=== PATIENT | male | born 1990 | race African-American/Black ===

== ENCOUNTER 2018-05-11 15:36 | Emergency (ER) | payer SELFPAY ==
[2018-05-11] MEDS ORDERED: NORMAL SALINE 1000 ML 1,000 ML IV ONE (16:10)
--- NOTE | 2018-05-11 16:12 | ER Document Report ---
ED Medical Screen (RME) - General Chief Complaint: Leg Swelling Stated Complaint: LEG INJURY Time Seen by Provider: 05/11/18 16:08 Notes: 27 years old male injured his left thigh yesterday while lifting a heavy iron weight left. Presents with large swelling and tenderness unable to bear weight or ambulate. Left eye has almost doubled the size of the right one with diffuse tenderness and tense feeling. Subcutaneous erythema noted. TRAVEL OUTSIDE OF THE [place] IN LAST 30 DAYS: No - Related Data Allergies/Adverse Reactions: No Known Allergies Allergy (Verified 05/11/18 15:38) Physical Exam - Vital signs Vitals: Temp Pulse Resp BP Pulse Ox 99.1 F 110 H 17 113/65 97 05/11/18 15:47 05/11/18 15:47 05/11/18 15:47 05/11/18 15:47 05/11/18 15:47 Course - Vital Signs Vital signs: Temp Pulse Resp BP Pulse Ox 99.1 F 110 H 17 113/65 97 05/11/18 15:47 05/11/18 15:47 05/11/18 15:47 05/11/18 15:47 05/11/18 15:47
[2018-05-11 16:45] LABS: ABSOLUTE LYMPHOCYTES (AUTO) 1.5 10^3/uL (0.5-4.7); ABSOLUTE MONOCYTES (AUTO) 1.1 10^3/uL (0.1-1.4); BASOPHILS % (AUTO) 0.3 % (0-2); EOSINOPHILS % (AUTO) 0.1 % (0-6); HEMATOCRIT 40.8 % (37.9-51.0); HEMOGLOBIN 14.2 g/dL (13.5-17.0); MEAN CORPUSCULAR HEMOGLOBIN 32.7 pg (27.0-33.4); MEAN CORPUSCULAR HGB CONC 34.7 g/dL (32.0-36.0); MEAN CORPUSCULAR VOLUME 94 fl (80-97); MONOCYTES % (AUTO) 10.2 % (3-13); PLATELET COUNT 222 10^3/uL (150-450); RED BLOOD COUNT 4.33 10^6/uL (4.35-5.55); RED CELL DISTRIBUTION WIDTH 13.1 % (11.5-14.0); SEGMENTED NEUTROPHILS % (AUTO) 75.4 % (42-78); TOTAL CELLS COUNTED % (AUTO) 100 %; WHITE BLOOD COUNT 10.6 10^3/uL (4.0-10.5)
[2018-05-11] MEDS ORDERED: MORPHINE SULFATE 10 MG/ML INJ IV ONE (16:46)
--- NOTE | 2018-05-11 16:46 | ER Document Report ---
ED Extremity Problem, Lower - General Chief Complaint: Leg Swelling Stated Complaint: LEG INJURY Time Seen by Provider: 05/11/18 16:08 Notes: Patient is a 27-year-old male presenting to the emergency room for left thigh swelling. 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 Patient denies having the weight actually fall or land on him at all states he just had a twisting motion of his left knee and upper leg. Patient states he visited a freestanding emergency room in [place] yesterday got an x-ray of his knee which revealed no fractures. Stated he was supposed to follow-up with orthopedics. Patient states he followed up with Dr. Cruz in [place] today who stated the left thigh was swollen and he could be developing compartment syndrome. States he was then scheduled for an outpatient MRI tomorrow. Patient states this afternoon and evening he noticed that the swelling and pain had gotten worse which is why he presents to the emergency room. Past medical history: None Medications: None Allergies: None TRAVEL OUTSIDE OF THE [place] IN LAST 30 DAYS: No - Related Data Allergies/Adverse Reactions: No Known Allergies Allergy (Verified 05/11/18 15:38) Past Medical History - General Information source: Patient - Social History Smoking Status: Never Smoker Chew tobacco use (# tins/day): No Frequency of alcohol use: None Drug Abuse: None Lives with: Family Family History: Reviewed & Not Pertinent Patient has suicidal ideation: No Patient has homicidal ideation: No Renal/ Medical History: Denies: Hx Peritoneal Dialysis Past Surgical History: Reports: Hx Orthopedic Surgery - finger Review of Systems - Review of Systems Constitutional: No symptoms reported EENT: No symptoms reported Cardiovascular: No symptoms reported Respiratory: No symptoms reported Gastrointestinal: No symptoms reported Genitourinary: No symptoms reported Male Genitourinary: No symptoms reported Musculoskeletal: See HPI Skin: See HPI Hematologic/Lymphatic: No symptoms reported Neurological/Psychological: No symptoms reported Physical Exam - Vital signs Vitals: Temp Pulse Resp BP Pulse Ox 99.1 F 110 H 17 113/65 97 05/11/18 15:47 05/11/18 15:47 05/11/18 15:47 05/11/18 15:47 05/11/18 15:47 - Notes Notes: GENERAL: -Sudanese, alert, interacts well. No acute distress. HEAD: Normocephalic, atraumatic. EYES: Pupils equal, round, and reactive to light. Extraocular movements intact. ENT: Oral mucosa moist, tongue midline. NECK: Full range of motion. Supple. Trachea midline. LUNGS: Clear to auscultation bilaterally, no wheezes, rales, or rhonchi. No respiratory distress. HEART: Regular rate and rhythm. No murmur ABDOMEN: Soft, non-tender. Non-distended. Bowel sounds present in all 4 quadrants. EXTREMITIES: Moves all 4 extremities spontaneously. normal radial and dorsalis pedis pulses bilaterally. Capillary refill less than 2 seconds all 4 extremities. Significant swelling to the left thigh, almost double the size of the right thigh. Entire circumferential thigh is hard to touch bruising seen around the distal femur. Distal left foot warm to touch good cap refill and pulses noted. BACK: no cervical, thoracic, lumbar midline tenderness. No saddle anesthesia, normal distal neurovascular exam. NEUROLOGICAL: Alert and oriented x3. Normal speech. cranial nerves II through XII grossly intact PSYCH: Normal affect, normal mood. SKIN: Warm, dry, normal turgor. Course - Re-evaluation Re-evalutation: Discussed case with Dr. Harris who is requesting an MRI at this time. States he will see the patient in the emergency room. MRI ordered, pain management ordered. Awaiting Dr. Harris's consult. 05/11/18 18:30 Dr. Harris currently in the emergency room evaluating the patient at bedside. 05/11/18 19:11 Dr. Harris stated this was not compartment syndrome, after reviewing the MRI and doing a physical exam he states the swelling is due to bleeding. He is requesting an MRI of the left knee and discharge home with pain medication. He states he will see the patient tomorrow morning in his office. - Vital Signs Vital signs: Temp Pulse Resp BP Pulse Ox 98.4 F 105 H 17 135/41 H 98 05/11/18 18:30 05/11/18 18:30 05/11/18 18:30 05/11/18 18:30 05/11/18 18:30 - Laboratory Result Diagrams: 05/11/18 16:35 05/11/18 16:35 Laboratory results interpreted by me: 05/11/18 05/11/18 16:35 16:35 WBC 10.6 H RBC 4.33 L AST 60 H Creatine Kinase 3122 H Discharge - Discharge Clinical Impression: Left leg swelling Left leg injury Qualifiers: Encounter type: initial encounter Qualified Code(s): S89.92XA - Unspecified injury of left lower leg, initial encounter Condition: Stable Disposition: HOME, SELF-CARE Additional Instructions: As we discussed at bedside and as you were told by Dr. Harris you should follow- up in his office tomorrow morning. He will review the results of the second MRI and be able to better treat you. Please take medications as prescribed. Please return to the emergency room for any other concerning symptoms. Prescriptions: Oxycodone HCl/Acetaminophen [Percocet 5-325 mg Tablet] 1 - 2 tab PO Q4H PRN #15 tablet PRN Reason: Referrals: GRIS MUNOZ MD [ACTIVE STAFF] - Follow up as needed
[2018-05-11 17:12] LABS: ALANINE AMINOTRANSFERASE 53 U/L (21-72); ALBUMIN 4.2 g/dL (3.5-5.0); ALKALINE PHOSPHATASE 48 U/L (38-126); ANION GAP 14 (5-19); ASPARTATE AMINO TRANSFERASE 60 U/L (17-59); BILIRUBIN,DIRECT 0.1 mg/dL (0.0-0.4); BILIRUBIN,TOTAL 0.8 mg/dL (0.2-1.3); BLOOD UREA NITROGEN 12 mg/dL (7-20); CALCIUM 9.2 mg/dL (8.4-10.2); CARBON DIOXIDE 28 mmol/L (22-30); CHLORIDE 100 mmol/L (98-107); GLUCOSE 110 mg/dL (75-110); SODIUM 141.9 mmol/L (137-145); TOTAL PROTEIN 7.4 g/dL (6.3-8.2)
[2018-05-11 17:30] LABS: CREATINE KINASE 3122 U/L (55-170)
[2018-05-11] MEDS ORDERED: HYDROMORPHONE HCL INJ/PF 2 MG/ML AMPULE IV ONE (18:22)
[2018-05-11] MEDS ORDERED: HYDROCODONE/ACETAMINOPHEN 5-325 MG (6 TAB/ER DISP) PO PRN (19:23)
--- NOTE | 2018-05-11 20:08 | PDOC CONSULTATION ---
Consultation Consult Date: 05/11/18 Consult reason:: Rule out compartment syndrome of the left thigh. History of Present Illness Patient complains of: Left thigh swelling and weakness History of Present Illness: WHITNEY PIPER is a 27 year old male who had a injury in the gym while weightlifting where he twisted and felt a pop and swelling in his left knee and had T just to like over the weights. Immediately had swelling and pain in the leg and referred him to orthopedics at [facility] so. Has scheduled for an MRI of his extremity for concern of quadriceps tendon rupture. Patient swelling and pain has not worsened so patient has come here 24 hours later with significant swelling and pain of the left thigh. He denies any pain in the hip when the knee. Just complains of the tension on swelling of his thigh. Denies any numbness or tingling or paresthesias. Denies any previous injuries to the knee or hip. No fevers or chills. Past Surgical History Past Surgical History: Reports: Orthopedic Surgery - finger Social History Lives with: Family Smoking Status: Never Smoker Family History Family History: Reviewed & Not Pertinent Parental Family History Reviewed: No Children Family History Reviewed: No Sibling(s) Family History Reviewed.: No Medication/Allergy Home Medications: Oxycodone HCl/Acetaminophen [Percocet 5-325 mg Tablet] 1 - 2 tab PO Q4H PRN #15 tablet 05/11/18 Allergies/Adverse Reactions: No Known Allergies Allergy (Verified 05/11/18 15:38) Review of Systems Review of Systems: Constitutional: [PRESENT: as per HPI. ABSENT: chills, fever(s), headache(s), weight gain, weight loss] Eyes: [ABSENT: visual disturbances] Ears: [ABSENT: hearing changes] Cardiovascular: [ABSENT: chest pain, dyspnea on exertion, edema, orthropnea, palpitations] Respiratory: [ABSENT: cough, hemoptysis] Gastrointestinal: [ABSENT: abdominal pain, constipation, diarrhea, hematemesis, hematochezia, nausea, vomiting] Genitourinary: [ABSENT: dysuria, hematuria] Musculoskeletal: [ABSENT: joint swelling] Integumentary: [ABSENT: rash, wounds] Neurological: [ABSENT: abnormal gait, abnormal speech, confusion, dizziness, focal weakness, syncope] Psychiatric: [ABSENT: anxiety, depression, homicidal ideation, suicidal ideation ] Endocrine: [ABSENT: cold intolerance, heat intolerance, menstrual abnormalities , polydipsia, polyuria] Hematologic/Lymphatic: [ABSENT: easy bleeding, easy bruising, lymphadenopathy] Physical Exam Vital Signs: Temp Pulse Resp BP Pulse Ox 36.9 C 105 H 17 135/41 H 98 05/11/18 18:30 05/11/18 18:30 05/11/18 18:30 05/11/18 18:30 05/11/18 18:30 Intake & Output 05/10/18 05/11/18 05/12/18 06:59 06:59 06:59 Intake Total 866 Balance 866 Weight 122.47 kg General appearance: PRESENT: no acute distress Head exam: PRESENT: atraumatic, normocephalic Eye exam: PRESENT: EOMI, other - Symmetric pupils round Ear exam: PRESENT: normal external ear exam. ABSENT: bleeding, drainage Mouth exam: PRESENT: neck supple Neck exam: ABSENT: lymphadenopathy, thyromegaly Respiratory exam: PRESENT: symmetrical, unlabored. ABSENT: accessory muscle use , tachypnea Cardiovascular exam: PRESENT: RRR Pulses: PRESENT: other - Dopplerable pulse Vascular exam: PRESENT: normal capillary refill GI/Abdominal exam: PRESENT: soft. ABSENT: organolmegaly, rebound, rigid, tenderness Neurological exam: PRESENT: alert, awake, oriented to person, oriented to place , oriented to time, oriented to situation Psychiatric exam: PRESENT: appropriate affect, normal mood Skin exam: PRESENT: intact, normal color. ABSENT: cyanosis, skin tears Adult Front & Back Image: 1 - Significant thigh swelling on the left with a palpable gap around the quadriceps tendon. No pain with palpation. When I flex the hip and knee patient does not have excruciating pain or any type of pain in the thigh. Just feels tension and warmth. Some discomfort when ambulating. He has 5 out of 5 strength distally with dorsi flexion and plantar flexion as well as EHL FHL are intact. He has good sensation to light touch involving the tibial and peroneal nerve distally. No shooting pain or acute neuropathic pain. Unable to do a straight leg raise. Results Laboratory Results: 05/11/18 16:35 05/11/18 16:35 05/11/18 05/11/18 16:35 16:35 WBC 10.6 H RBC 4.33 L Hgb 14.2 Hct 40.8 MCV 94 MCH 32.7 MCHC 34.7 RDW 13.1 Plt Count 222 Seg Neutrophils % 75.4 Lymphocytes % 14.0 Monocytes % 10.2 Eosinophils % 0.1 Basophils % 0.3 Absolute Neutrophils 8.0 Absolute Lymphocytes 1.5 Absolute Monocytes 1.1 Absolute Eosinophils 0.0 Absolute Basophils 0.0 Sodium 141.9 Potassium 4.0 Chloride 100 Carbon Dioxide 28 Anion Gap 14 BUN 12 Creatinine 1.21 Est GFR ( Amer) > 60 Est GFR (Non-Af Amer) > 60 Glucose 110 Calcium 9.2 Total Bilirubin 0.8 AST 60 H ALT 53 Alkaline Phosphatase 48 Total Protein 7.4 Albumin 4.2 05/11/18 16:35 Creatine Kinase 3122 H Status: Image reviewed by me Assessment & Plan - Diagnosis (1) Quadriceps tendon rupture Qualifiers: Encounter type: initial encounter Laterality: left Qualified Code(s): S76.112A - Strain of left quadriceps muscle, fascia and tendon, initial encounter Is this a current diagnosis for this admission?: Yes Plan: 27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 He has a subsequent hematoma that is between the fascial muscular compartment in the subcutaneous fat tracking anterior laterally. He has this seen on MRI. Discussed the patient does not have compartment syndrome but significant hematoma from the tear. We will see him tomorrow in the office to schedule outpatient quadriceps tendon repair. The meantime ice and elevate the extremity and crutches for ambulation follow-up in the office in the morning.
--- NOTE | 2018-05-11 20:37 | RADIOLOGY REPORT (SQ) ---
EXAM DESCRIPTION: MRI LT LOWER EXTREMITY COMBO COMPLETED DATE/TIME: 05/11/2018 6:17 pm REASON FOR STUDY: left thigh swelling injured yesterday, now unable to walk with severe left thigh p ain COMPARISON: None. TECHNIQUE: This study was initially ordered as a lower extremity without and with contrast to evalua te for left thigh compartment syndrome. Patient was injected with 20 mL of IV Dotarem contrast. Est imated GFR greater than 60. Left thigh and knee images acquired and stored on PACS. Multiplanar images include fat sensitive seq uences as T1, water sensitive sequences as FST2 or STIR, cartilage sensitive sequences as FSPD, and g radient echo sequences. LIMITATIONS: None. FINDINGS: Left thigh pre and post contrast images demonstrate an acute hematoma, tracking along the superficial aspect of the quadriceps muscles from the inguinal region through the knee. This acute h ematoma measures 15 cm transverse by 30 cm craniocaudad by 2 cm AP, and continues into the anterior u pper calf subcutaneous fat. The quadriceps tendon and muscular attachments are disrupted. The vastus medialis muscle attachment to the quadriceps tendon is completely torn, at its musculotendinous junction. There is contrast enh ancement at the tear, and an intramuscular tear extending along the distal 3rd vastus medialis muscle . These changes are best shown on coronal series 7 images 12-18, axial series 5 images 4-15, and axi al series 7 images 46-54. The vastus intermedius muscle is torn from the proximal quadriceps tendon at its musculotendinous lencho ction, best shown on axial series 5, images 4-15. There is a short stump of persistent partially intact quadriceps tendon attached to the distal vastus lateralis muscle, best shown on axial series 5, image 12. There is a full-thickness quadriceps tendon tear between the residual vastus lateralis tendon stump a nd the patella. Gap in the tendon measures about 7 cm. These findings are best shown on coronal ser ies 8 images 9-23. Large nxepn-db-alca imaging of the left knee: JOINT AND BURSAE: Suprapatellar knee joint effusion communicates with the large hematoma in the anter ior left thigh. BONE CORTEX AND MARROW: No alteration of signal to suggest marrow replacement. No worrisome bone lesi ons. No occult fracture. ACL: Intact. No degeneration or ganglion cyst. PCL: Intact. MCL: Intact. No periligamentous edema or fluid. LCL: Intact. No periligamentous edema or fluid. MEDIAL MENISCUS: Grossly intact. LATERAL MENISCUS: Grossly intact MEDIAL COMPARTMENT: Grossly intact LATERAL COMPARTMENT: Grossly intact PATELLA: No fracture. Slight lateral subluxation of the patella. EXTENSOR MECHANISM: As above SOFT TISSUES: Normal flow voids in the popliteal artery and vein, superficial femoral artery and vein . OTHER: No other significant finding. IMPRESSION: Disruption of the quadriceps tendon, both at the musculotendinous junctions and at its a ttachment to the patella. Intramuscular tears of the vastus medialis and vastus intermedius muscles Large left anterior thigh hematoma extending into the prepatellar soft tissues and upper left calf Findings communicated to Dr. Penn, 1915 hours 05/11/2018 TECHNICAL DOCUMENTATION: JOB ID: [id number] [employer]- All Rights Reserved Reading location - IP/workstation name: [email or web address]
[2018-05-11 21:03] VITALS: BP 157/64
== END 2018-05-11 21:03 | disposition home or self-care (01) ==
LOC: ER 15:36
DX: S89.92XA Unspecified injury of left lower leg, initial encounter (principal); M79.89 Other specified soft tissue disorders; X50.0XXA Overexertion from strenuous movement or load, initial encounter; Y93.B3 Activity, free weights
CPT/HCPCS: 99284; 96361; 96374; 96375; 36415; 82550; 85025; 80053; 73720; A9576; J2270; J1170; J7030

== ENCOUNTER 2018-05-15 14:09 | Day surgery (SDC) | payer SELFPAY ==
[~2018-05-15 14:09] MED LIST: CEFAZOLIN 2 GM/D5W RTU 2 GM/50 ML RTUPB IV PRN; SUCCINYLCHOLINE CHLORIDE INJ 200 MG/10 ML VIAL ONE
[2018-05-15] MEDS ORDERED: ONDANSETRON HCL INJ/PF 4 MG/2 ML SDV ONE (14:27)
[2018-05-15] MEDS ORDERED: DEXAMETHASONE SOD PHOSPHATE INJ 4 MG/1 ML VIAL ONE (14:27)
[2018-05-15] MEDS ORDERED: MIDAZOLAM 2 MG/2 ML INJ ONE (14:27)
[2018-05-15] MEDS ORDERED: LIDOCAINE 2% INJ-PF (20 MG/ML) 10 ML AMPUL ONE (14:27)
[2018-05-15] MEDS ORDERED: FENTANYL CITRATE INJ/PF 100 MCG/2 ML AMPUL ONE ×4 (14:27→18:41)
[2018-05-15] MEDS ORDERED: PROPOFOL INJ 200 MG/20 ML VIAL IV ONE (14:28)
[2018-05-15] MEDS ORDERED: ACETAMINOPHEN 1,000 MG/100 ML RTUPB IV ONE (14:28)
--- NOTE | 2018-05-15 15:00 | RADIOLOGY REPORT (SQ) ---
EXAM DESCRIPTION: CHEST SINGLE VIEW COMPLETED DATE/TIME: 05/15/2018 2:51 pm REASON FOR STUDY: PREOP COMPARISON: None. EXAM PARAMETERS: NUMBER OF VIEWS: One view. TECHNIQUE: Single frontal radiographic view of the chest acquired. RADIATION DOSE: NA LIMITATIONS: None. FINDINGS: LUNGS AND PLEURA: No opacities, masses or pneumothorax. No pleural effusion. MEDIASTINUM AND HILAR STRUCTURES: No masses. Contour normal. HEART AND VASCULAR STRUCTURES: Heart normal in size. Normal vasculature. BONES: No acute findings. HARDWARE: None in the chest. OTHER: No other significant finding. IMPRESSION: NO ACUTE RADIOGRAPHIC FINDING IN THE CHEST. TECHNICAL DOCUMENTATION: JOB ID: [id number] [employer]- All Rights Reserved Reading location - IP/workstation name: [email or web address]
[2018-05-15] MEDS ORDERED: CEFAZOLIN 2 GM/D5W RTU 2 GM/50 ML RTUPB IV ONE (15:47)
[2018-05-15] MEDS ORDERED: MORPHINE SULFATE 10 MG/ML INJ IV PRN ×2 (15:58→17:50)
[2018-05-15] MEDS ORDERED: MEPERIDINE HCL/PF INJ 25 MG/1 ML DISP.SYRIN IV PRN ×2 (15:58→17:50)
[2018-05-15] MEDS ORDERED: DIPHENHYDRAMINE HCL 50 MG/ML VIAL IV PRN ×2 (15:58→17:50)
[2018-05-15] MEDS ORDERED: ONDANSETRON HCL INJ/PF 4 MG/2 ML SDV IV PRN ×2 (15:58→17:50)
[2018-05-15] MEDS ORDERED: FENTANYL CITRATE INJ/PF 100 MCG/2 ML AMPUL IV PRN ×6 (15:58→17:50)
[2018-05-15] MEDS ORDERED: PROMETHAZINE HCL INJ 25 MG/1 ML VIAL IV PRN ×4 (15:58→17:50)
[2018-05-15 16:31] LABS: HEMATOCRIT 30.5 % (37.9-51.0); HEMOGLOBIN 10.8 g/dL (13.5-17.0); MEAN CORPUSCULAR HEMOGLOBIN 33.1 pg (27.0-33.4); MEAN CORPUSCULAR HGB CONC 35.3 g/dL (32.0-36.0); MEAN CORPUSCULAR VOLUME 94 fl (80-97); PLATELET COUNT 275 10^3/uL (150-450); RED BLOOD COUNT 3.26 10^6/uL (4.35-5.55); RED CELL DISTRIBUTION WIDTH 12.9 % (11.5-14.0); WHITE BLOOD COUNT 8.7 10^3/uL (4.0-10.5)
[2018-05-15 16:48] LABS: ANION GAP 10 (5-19); BLOOD UREA NITROGEN 14 mg/dL (7-20); CALCIUM 9.1 mg/dL (8.4-10.2); CARBON DIOXIDE 29 mmol/L (22-30); CHLORIDE 98 mmol/L (98-107); GLUCOSE 87 mg/dL (75-110); POTASSIUM 4.7 mmol/L (3.6-5.0); SODIUM 137.2 mmol/L (137-145)
[2018-05-15] MEDS ORDERED: OXYCODONE-ACETAMINOPHEN 5-325 MG TABLET PO PRN ×4 (17:50→19:17)
[2018-05-15] MEDS ORDERED: MORPHINE SULFATE 10 MG/ML INJ ONE (18:41)
--- NOTE | 2018-05-15 19:10 | Operative Report ---
Operative Report DATE OF SURGERY: 05/15/18 PREOPERATIVE DIAGNOSIS: Left quadriceps tendon rupture POSTOPERATIVE DIAGNOSIS: Same OPERATION: Left quadriceps tendon repair SURGEON: GRIS GARG ANESTHESIA: GA TISSUE REMOVED OR ALTERED: None COMPLICATIONS: None ESTIMATED BLOOD LOSS: 20 mL INTRAOPERATIVE FINDINGS: Left quadriceps tendon rupture with partial muscle rupture PROCEDURE: After receiving 2 g of Ancef in the preop holding area patient left knee was marked. Patient was brought to the operating room where the patient was successfully sedated and intubated. A thigh tourniquet was applied to the left thigh and a bump was placed under his buttocks. The left lower extremity was prepped and draped in a normal sterile surgical fashion. Timeout was done identifying the left knee as the correct site. Esmarch was used to exsanguinate the extremity and the tourniquet was inflated to 350 mmHg. A longitudinal incision over the knee was done using a 10 blade. Deep knife was using to quickly exposed the torn quadriceps tendon. Dissection was taken down distally exposing the superior pole of the patella and retinaculum. Suction was used to remove all of the fluid and hematoma. About 500 cc of hematoma was evacuated. Immediately I noted that the lateral retinaculum and the lateral portion of the tendon was ripped but the one medial one third was attached and the tear went into the muscle between the rectus femoris and vastus medialis. Noted that the medialis was then reattached to the remaining muscle care to align the edges for repair. The edges of the quadriceps tendon and superior pole of patella were debrided and cleaned with Hammad, and knife. I proceeded to use the radiofrequency ablator to then dissect the superior pole of patella of the lateral aspect which coincided with the rupture. I used a guide pin drilled into the patella and then used a cannulated reamer and reamed all way down to 20 mm depth for placement of my 50 mm corkscrew. I then used the tap and tapped it 3 times and then secured the 5.5 by composite corkscrew with fiber suture. I used a freehand needle then to do a Krakw stitch up the tendon and brought her right back down for securing the tendon back onto the patella. The second strand was then sutured up the tendon into the medial aspect of the tear and brought back down as well. Once I satisfied with my sutures that were locked and then proceeded to tighten him with the knee in extension. After tying knots and leaving to tail I placed the knee range of motion from 0 degrees up to 90 degrees with no gapping. After securing the tendon I proceeded then to use 0 Vicryl to repair the lateral retinaculum. I used 0 Vicryl to repair the stab incisions in the patellar tendon. At this point I proceeded to close the wound with 0 Vicryl to Vicryl and marcelo for skin. Xeroform 4 x 4 dressing and Sof-Rol was applied to the wound and lower extremity. I overwrapped it with an Jose bandage. Tourniquet was let down at 71 minutes and then the drapes were removed. Patient was placed in a knee immobilizer . Patient was successfully extubated and sent to PACU in stable condition.
--- NOTE | 2018-05-15 19:17 | Discharge Summary ---
Discharge Summary (SDC) - Discharge Final Diagnosis: Left quadriceps tendon repair Date of Surgery: 05/15/18 Discharge Date: 05/15/18 Condition: Good Treatment or Instructions: Only okay to ambulate with a knee immobilizer on and knee in full extension. When not ambulating elevate the extremity and placed ice on it. Keep the dressing dry clean and intact until follow-up in 10-14 days. Prescriptions: Oxycodone HCl/Acetaminophen [Percocet 5-325 mg Tablet] 1 - 2 tab PO ASDIR PRN # 40 tablet PRN Reason: Discharge Diet: As Tolerated Respiratory Treatments at Home: Deep Breathing/Coughing Discharge Activity: No Driving, Keep Legs Elevated, No Lifting/Push/Pulling, Other - Keep immobilizer on at all times when and relating. Do not attempted range of motion of the knee. Home Care Assistance: None Needed Adaptive Devices on Discharge: Axillary Crutches Report the Following to Your Physician Immediately: Shortness of Breath, Vomiting, Increase in Pain, Fever over 101 Degrees, Unusual Bleeding, Redness, Swelling, Warmth, Increased Soreness, Drainage-Yellow, Drainage-Frye, Drainage- Green, Drainage-Foul Smelling
[2018-05-15] MEDS ORDERED: KETOROLAC TROMETHAMINE INJ/PF 30 MG/1 ML SDV ONE (19:34)
[2018-05-15 21:17] VITALS: BP 168/81
--- NOTE | 2018-05-15 21:56 | EKG REPORT ---
SEVERITY:- BORDERLINE ECG - SINUS TACHYCARDIA PROBABLE LEFT ATRIAL ABNORMALITY CONSIDER RIGHT VENTRICULAR HYPERTROPHY ST ELEV, PROBABLE NORMAL EARLY REPOL PATTERN : Confirmed by: Oma Mcgarry MD 15-May-2018 21:55:47
== END 2018-05-15 21:31 | disposition home or self-care (01) ==
LOC: OROUT 14:09 → 2N 20:09 → OROUT 21:31
PROVIDERS: ATTEND Orthopaedic Surgery
DX: S76.112A Strain of left quadriceps muscle, fascia and tendon, initial encounter (principal); X58.XXXA Exposure to other specified factors, initial encounter; M25.562 Pain in left knee
CPT/HCPCS: 36415; 85027; 80048; 71045; 93005; 93010; 27385; L1830; C1713; J2250; J1100; J3010; J1885; J2270; J0330; J2405; J2704; J3490; J0690; J0131; 1250